=== PATIENT | male | born 1995 | race Hispanic/Latino ===

== ENCOUNTER 2019-11-18 04:27 | Emergency (ER) | payer OTHER | END 2019-11-18 04:45 | LOC: EDH 04:27 | DX: Z02.83 Encounter for blood-alcohol and blood-drug test (principal) | CPT/HCPCS: 36415 ==

== ENCOUNTER 2020-01-16 03:52 | Emergency (ER) | payer OTHER ==
[2020-01-16] MEDS ORDERED: TETRACAINE HCL 0.5% 4 ML OPHTH SOLN ONE (04:30)
[2020-01-16] MEDS ORDERED: NA BORATE/BORIC AC/H2O/NACL 120 ML OPHTH IRRIG SOLN ONE (04:30)
[2020-01-16] MEDS ORDERED: FLUORESCEIN SODIUM 1 STRIP STRIP ONE (04:30)
[2020-01-16] MEDS ORDERED: IBUPROFEN 200 MG TAB ONE (04:31)
[2020-01-16] MEDS ORDERED: ERYTHROMYCIN BASE 0.5% OPHTH OINT 1 GM TUBE ONE (04:45)
== END 2020-01-16 05:10 ==
LOC: EDH 03:52
DX: S93.401A Sprain of unspecified ligament of right ankle, initial encounter (principal); S00.81XA Abrasion of other part of head, initial encounter; S40.211A Abrasion of right shoulder, initial encounter; S80.811A Abrasion, right lower leg, initial encounter; Z72.0 Tobacco use; X50.1XXA Overexertion from prolonged static or awkward postures, initial encounter; Y93.89 Activity, other specified; Y92.89 Other specified places as the place of occurrence of the external cause; Y99.8 Other external cause status
CPT/HCPCS: 73610